=== PATIENT | male | born 1965 | race Caucasian/White ===

== ENCOUNTER 2017-03-24 20:34 | Emergency (ER) | payer OTHER ==
[2017-03-24 21:04] VITALS: BP 173/96; PULSE 87; TEMP 98.7; BMI 37.2
--- NOTE | 2017-03-24 21:05 | PDOC ---
History of Present Illness - History of Present Illness Initial Comments: 03/24/17 21:32 51 y/o M with a PMHx of hypothyroidism presents to the ED with feeling of dehydration. He reports associated heart palpitations, shortness of breath, lethargy, diaphoresis, subjective fever, dry mouth, nausea. He states that he has been trying to drink more water and gatorade to compensate for the dehydration. He reports associated urinary frequency. Patient reports he ran out of his thyroid medication 3-4 days ago. Denies vomiting, diarrhea, constipation. Denies dysuria, hematuria. Air Pollution Control Engineer: Dr. Zheng Johnson <Kaley Jane - Last Filed: 03/24/17 21:32> <Nancy Jurado - Last Filed: 03/25/17 00:27> - General Chief Complaint: Shortness of Breath Stated Complaint: FEELS DEHYDRATED, ANXIETY, SOB Time Seen by Provider: 03/24/17 20:36 Past History <Kaley Jane - Last Filed: 03/24/17 21:32> - Past Medical History Cancer: Yes (testicular) Thyroid Disease: Yes - Psycho/Social/Smoking Cessation Hx Suicidal Ideation: No Smoking Status: No Smoking History: Never smoked Number of Cigarettes Smoked Daily: 0 Information on smoking cessation initiated: No Hx Alcohol Use: No Drug/Substance Use Hx: No <Nancy Jurado - Last Filed: 03/25/17 00:27> - Past Medical History Allergies/Adverse Reactions: Allergies Allergy/AdvReac Type Severity Reaction Status Date / Time No Known Allergies Allergy Verified 03/24/17 20:46 Home Medications: Ambulatory Orders Thyroid [[place] Thyroid] 120 mg PO DAILY 03/24/17 Review of Systems - Review of Systems Comments:: 03/24/17 21:32 GENERAL/CONSTITUTIONAL: (+) subjective fever, lethargy, diaphoresis, dehydration. No weakness. HEAD, EYES, EARS, NOSE AND THROAT: No change in vision. No ear pain or discharge. No sore throat. CARDIOVASCULAR: (+) shortness of breath, palpitations. No chest pain. RESPIRATORY: No cough, wheezing, or hemoptysis. GASTROINTESTINAL: (+) nausea. No vomiting, diarrhea or constipation. GENITOURINARY: (+) frequency. No dysuria. MUSCULOSKELETAL: No joint or muscle swelling or pain. No neck or back pain. SKIN: No rash NEUROLOGIC: No headache, vertigo, loss of consciousness, or change in strength/ sensation. ENDOCRINE: No abnormal weight change. HEMATOLOGIC/LYMPHATIC: No anemia, easy bleeding, or history of blood clots. ALLERGIC/IMMUNOLOGIC: No hives or skin allergy. <Kaley Jane - Last Filed: 03/24/17 21:32> *Physical Exam - Vital Signs Last Vital Signs Temp Pulse Resp BP Pulse Ox 98.7 F 87 18 173/96 99 03/24/17 20:35 03/24/17 20:35 03/24/17 20:35 03/24/17 20:35 03/24/17 20:35 <Kaley Jane - Last Filed: 03/24/17 21:32> - Vital Signs Last Vital Signs Temp Pulse Resp BP Pulse Ox 98.7 F 87 18 173/96 99 03/24/17 20:35 03/24/17 20:35 03/24/17 20:35 03/24/17 20:35 03/24/17 20:35 - Physical Exam Comments: GENERAL: Awake, alert, and fully oriented, in no acute distress HEAD: No signs of trauma EYES: PERRLA, EOMI, sclera anicteric, conjunctiva clear ENT: Auricles normal inspection, hearing grossly normal, nares patent, oropharynx clear without exudates. Moist mucosa NECK: Normal ROM, supple, no lymphadenopathy, JVD, or masses LUNGS: Breath sounds equal, clear to auscultation bilaterally. No wheezes, and no crackles HEART: Regular rate and rhythm, normal S1 and S2, no murmurs, rubs or gallops ABDOMEN: Soft, nontender, normoactive bowel sounds. No guarding, no rebound. No masses EXTREMITIES: Normal range of motion, no edema. No clubbing or cyanosis. No cords, erythema, or tenderness NEUROLOGICAL: Cranial nerves II through XII grossly intact. Normal speech, normal gait SKIN: Warm, mild diaphoresis, normal turgor, no rashes or lesions noted. <Nancy Jurado - Last Filed: 03/25/17 00:27> Heart Score/ECG Review - ECG Impressions Comment:: EKG read 22:09- NSR 78 bpm, no acute ST/T changes <Nancy Jurado - Last Filed: 03/25/17 00:27> ED Treatment Course - LABORATORY CBC & Chemistry Diagram: 03/24/17 21:45 03/24/17 21:45 <Nancy Jurado - Last Filed: 03/25/17 00:27> Medical Decision Making - Medical Decision Making Labs reviewed with patient. He states he has a history of "too much blood", which may indicate history of polycythemia in past. No other acute findings. He reports improvement in his symptoms with IV hydration. He has appointment with Dr. Johnson in the morning, will get refill for his thyroid medication. TSH/ Free T4 pending. I discussed with patient that Dr. Johnson will be able to review the labs. Stable for DC home. <Nancy Jurado - Last Filed: 03/25/17 00:27> *DC/Admit/Observation/Transfer - Attestations Scribe Attestion: 03/24/17 21:32 Documentation prepared by Kaley Jane, acting as medical front desk coordinator for Nancy Jurado MD. <Kaley Jane - Last Filed: 03/24/17 21:32> - Discharge Dispostion Admit: No <Nancy Jurado - Last Filed: 03/25/17 00:27> Diagnosis at time of Disposition: Polycythemia, Dehydration - Discharge Dispostion Disposition: HOME Condition at time of disposition: Stable - Referrals Referrals: Candelario Barboza MD [Primary Care Provider] -
[2017-03-24 21:46] LABS: PH,URINE 5.5 (4.5-8); URINE APPEARANCE Clear; URINE BILIRUBIN Negative (NEGATIVE); URINE GLUCOSE (UA) Negative (NEGATIVE); URINE KETONE Negative (NEGATIVE); URINE LEUK ESTERASE Negative (NEGATIVE); URINE NITRITE Negative (NEGATIVE); URINE UROBILINOGEN 0.2 (0.2-1.0)
[2017-03-24 21:49] LABS: URINE BLOOD Trace-intact (NEGATIVE); URINE COLOR YELLOW; URINE PROTEIN 2+ (NEGATIVE)
[2017-03-24 21:55] LABS: MCH 30.7 pg (25.7-33.7); MEAN CELL VOLUME 87.8 fl (80-96); MEAN PLT VOLUME 8.7 fl (7.5-11.1); PLATELET COUNT 249 K/MM3 (134-434); RDW 12.9 % (11.9-15.9); WHITE BLOOD COUNT 12.3 K/mm3 (4.0-10.8)
[2017-03-24 22:10] LABS: ALBUMIN 4.1 g/dl (3.5-5.0); ALK PHOS 59 U/L (32-92); ANION GAP 9 (8-16); BILIRUBIN,TOTAL 0.5 mg/dl (0.2-1.0); CO2 28 mmol/L (22-28); CREATININE 1.5 mg/dl (0.6-1.3); GLUCOSE,RANDOM 117 mg/dl (74-106); SGOT/AST 31 U/L (10-42); SGPT/ALT 43 U/L (10-40); TOT PROT 7.4 g/dl (6.4-8.3)
[2017-03-24 22:11] LABS: CPK 666 IU/L (39-308)
[2017-03-24] MEDS ORDERED: SODIUM CHLORIDE 2,000 ML IV STA (22:20)
[2017-03-24 22:27] LABS: URINE WBC 0-2 (3-5)
[2017-03-24 22:28] LABS: URINE BACTERIA FEW /hpf (NEGATIVE)
[2017-03-24 22:29] LABS: PLATELET ESTIMATE ADEQUATE (NORMAL)
[2017-03-24 22:36] LABS: TROPONIN I (DFP) < 0.03 ng/ml (0.03-0.50)
[2017-03-24 23:20] LABS: FREE T4 0.57 ng/dl (0.76-1.16); THYROID STIMULATING HORMONE 8.62 uIU/ml (0.358-3.74)
--- NOTE | 2017-03-25 18:22 | EKG ---
Test Reason : Blood Pressure : / mmHG Vent. Rate : 078 BPM Atrial Rate : 078 BPM P-R Int : 162 ms QRS Dur : 104 ms QT Int : 344 ms P-R-T Axes : 053 000 020 degrees QTc Int : 392 ms NORMAL SINUS RHYTHM POSSIBLE LEFT ATRIAL ENLARGEMENT SEPTAL INFARCT , AGE UNDETERMINED NON-SPECIFIC INTRA-VENTRICULAR CONDUCTION BLOCK NO PREVIOUS ECGS AVAILABLE Confirmed by MD HERRING MARJORY ([id number]) on 03/25/2017 6:22:08 PM Referred By: DR VELAZQUEZ Confirmed By:BHARGAV HERRING MD
== END 2017-03-24 23:41 | disposition home or self-care (01) ==
LOC: SUPCPDRO 20:34 → FER 20:34
PROC: 3E0337Z Introduction of Electrolytic and Water Balance Substance into Peripheral Vein, Percutaneous Approach (ICD-10-PCS; principal; 2017-03-24)
DX: D75.1 Secondary polycythemia (principal); E86.0 Dehydration; Z85.47 Personal history of malignant neoplasm of testis; E07.9 Disorder of thyroid, unspecified
CPT/HCPCS: 36415; 71010-TC; 80053; 81003; 81015; 82553; 84439; 84443; 84484; 85025; 93005; 99283-25